=== PATIENT | female | born 1995 | race Caucasian/White ===

== ENCOUNTER 2016-08-06 16:59 | Emergency (ER) | payer OTHER ==
[2016-08-06] MEDS ORDERED: NS 0.9% 1000 ML* 2,000 ML IV ONE (20:34)
[2016-08-06] MEDS ORDERED: Acetaminophen TAB* 325 MG PO ONE (20:52)
[2016-08-06] MEDS ORDERED: Ondansetron INJ* 2 MG/ML VIAL IV ONE (20:52)
[2016-08-06 21:18] LABS: Hematocrit 41 % (35-47); Hemoglobin 13.4 g/dl (12.0-16.0); Mean Corpuscular HGB Conc 33 g/dl (31-36); Mean Corpuscular Hemoglobin 29 pg (27-31); Mean Corpuscular Volume 89 fL (80-97); Mean Platelet Volume 8 um3 (7.4-10.4); Red Blood Count 4.57 10^6/ul (4.0-5.4); Red Cell Distribution Width 13 % (10.5-15); White Blood Count 10.4 10^3/ul (3.5-10.8)
[2016-08-06 21:32] LABS: ALT 14 U/L (7-52); AST 22 U/L (13-39); Albumin 4.2 g/dL (3.2-5.2); Alkaline Phosphatase 70 U/L (34-104); Anion Gap 7 mmol/L (2-11); BUN/Creatinine Ratio 8.9 (8-20); Blood Urea Nitrogen 9 mg/dL (6-24); C Reactive Protein 60.21 mg/L (< 5.00); CO2 Carbon Dioxide 26 mmol/L (22-32); Calcium 9.6 mg/dL (8.6-10.3); Chloride 103 mmol/L (101-111); EGFR Non-African American 69.2 (>60); Globulin 3.3 g/dL (2-4); Glucose 88 mg/dL (70-100); Lipase 12 U/L (11.0-82.0); Potassium 3.7 mmol/L (3.5-5.0); Sodium 136 mmol/L (133-145); Total Protein 7.5 g/dL (6.4-8.9)
--- NOTE | 2016-08-06 23:02 | ED ---
Oscar Moore Adam, scribed for Cristopher Robertson MD on 08/06/16 at 2048 . Abdominal Pain/Female - HPI Summary HPI Summary: Pt is a 21 year old female presenting with abdominal pain. The pain is localized around her umbilicus and it has been constant for the past 24 hours but fluctuates in severity. It is aggravated by movement including ambulation and hitting bumps in the car. Eating food also aggravates the pain. She has not eaten since noon today because of the pain. It is between a 5 and 7 out of 10 in severity. It does not radiate anywhere. She has not taken anything for the pain. Pt states that she has also had a fever that set on 2 nights ago (Tmax 101 F). She also c/o nausea and lightheadedness/dizziness. She denies dysuria, URI sx, and pain/swelling in the legs. She doesn't know anyone who is sick right now. She is midway through her menstrual cycle. No Hx of hernias. - History of Current Complaint Chief Complaint: EDAbdPain Stated Complaint: ABD PAIN,NAUSEA,FEVER Time Seen by Provider: 08/06/16 20:38 Hx Obtained From: Patient Onset/Duration: Gradual Onset, Lasting Hours, Still Present Timing: Constant Severity Initially: Moderate Severity Currently: Moderate Pain Intensity: 5 Pain Scale Used: 0-10 Numeric Location: Umbilical Radiates: No Aggravating Factor(s): Movement Alleviating Factor(s): Nothing Associated Signs and Symptoms: Positive: Fever, Nausea Allergies/Adverse Reactions: Allergies Allergy/AdvReac Type Severity Reaction Status Date / Time Amoxicillin Allergy Hives Verified 04/03/14 09:28 Penicillins [PCN] Allergy Hives Verified 04/03/14 09:28 Sulfa Antibiotics Allergy Hives Verified 04/03/14 09:28 PMH/Surg Hx/FS Hx/Imm Hx Sensory History: Reports: Hx Contacts or Glasses Opthamlomology History: Reports: Hx Contacts or Glasses Psychiatric History: Reports: Hx Anxiety, Hx Depression, Hx Community Mental Health Tx Denies: Hx Eating Disorder, Hx of Violent Episodes Against Others Infectious Disease History: No Infectious Disease History: Denies: Traveled Outside the [place] in Last 30 Days - Family History Known Family History: Positive: Other - Anxiety (mother), depression (mother) - Social History Occupation: Student Lives: Alone Alcohol Use: Occasionally Alcohol Amount: 2x/month, 4 drinks at a time. Hx Substance Use: No Substance Use Type: Reports: None Hx Tobacco Use: No Smoking Status (MU): Never Smoked Tobacco Review of Systems Positive: Fever Positive: Abdominal Pain, Nausea Genitourinary: Negative Negative: dysuria Negative: Myalgia, Edema Neurological: Other - Dizziness/lightheadedness All Other Systems Reviewed And Are Negative: Yes Physical Exam - Summary Physical Exam Summary: The patient is well-nourished in no acute distress and in no acute pain. The skin is warm and dry and skin color reflects adequate perfusion. HEENT: The head is normocephalic and atraumatic. The pupils are equal and reactive. The conjunctivae are clear and without drainage. Nares are patent and without drainage. Mouth reveals moist mucous membranes and the throat is without erythema and exudate. The external ears are intact. Neck is supple with full range of motion and non-tender. There are no carotid bruits. There is no neck vein distension. Respiratory: Lungs are clear but there is pain with inspiration. Cardiovascular: Heart is regular rate and rhythm. There is no murmur or rub auscultated. There is no peripheral edema and pulses are symmetrical and equal. Abdomen: Good bowel sounds. No percussion tenderness. Tenderness to palpation over McBurney's point. No pain with percussion of legs or heels. No CVA tenderness. Musculoskeletal: There is no back pain noted. Extremities are non-tender with full range of motion. There is good capillary refill. There is no peripheral edema or calf tenderness elicited. Neurological: Patient is alert and oriented to person, place and time. The patient has symmetrical motor strength in all four extremities. Cranial nerves are grossly intact. Deep tendon reflexes are symmetrical and equal in all four extremities. Psychiatric: The patient has an appropriate affect and does not exhibit any anxiety or depression. Triage Information Reviewed: Yes Vital Signs On Initial Exam: Initial Vitals Temp Pulse Resp BP Pulse Ox 97.6 F 69 20 113/69 100 08/06/16 17:15 08/06/16 17:15 08/06/16 17:15 08/06/16 17:15 08/06/16 17:15 Vital Signs Reviewed: Yes Diagnostics - Vital Signs Vital Signs Temp Pulse Resp BP Pulse Ox 08/06/16 20:13 98.2 F 138 20 106/73 100 08/06/16 19:05 98 F 65 16 127/62 100 08/06/16 18:03 98.2 F 61 20 99/57 100 08/06/16 17:15 97.6 F 69 20 113/69 100 - Laboratory Lab Results: Lab Results 08/06/16 08/06/16 08/06/16 Range/Units 21:00 21:00 21:00 WBC 10.4 (3.5-10.8) 10^3/ul RBC 4.57 (4.0-5.4) 10^6/ul Hgb 13.4 (12.0-16.0) g/dl Hct 41 (35-47) % MCV 89 (80-97) fL MCH 29 (27-31) pg MCHC 33 (31-36) g/dl RDW 13 (10.5-15) % Plt Count 255 (150-450) 10^3/ul MPV 8 (7.4-10.4) um3 Neut % (Auto) 77.0 (38-83) % Lymph % (Auto) 15.2 L (25-47) % [place] % (Auto) 7.1 (1-9) % Eos % (Auto) 0.2 (0-6) % Baso % (Auto) 0.5 (0-2) % Absolute Neuts (auto) 8.0 H (1.5-7.7) 10^3/ul Absolute Lymphs (auto) 1.6 (1.0-4.8) 10^3/ul Absolute Monos (auto) 0.7 (0-0.8) 10^3/ul Absolute Eos (auto) 0 (0-0.6) 10^3/ul Absolute Basos (auto) 0.1 (0-0.2) 10^3/ul Absolute Nucleated RBC 0 10^3/ul Nucleated RBC % 0 Sodium 136 (133-145) mmol/L Potassium 3.7 (3.5-5.0) mmol/L Chloride 103 (101-111) mmol/L Carbon Dioxide 26 (22-32) mmol/L Anion Gap 7 (2-11) mmol/L BUN 9 (6-24) mg/dL Creatinine 1.01 H (0.51-0.95) mg/dL Est GFR ( Amer) 89.0 (>60) Est GFR (Non-Af Amer) 69.2 (>60) BUN/Creatinine Ratio 8.9 (8-20) Glucose 88 (70-100) mg/dL Lactic Acid 0.9 (0.5-2.0) mmol/L Calcium 9.6 (8.6-10.3) mg/dL Total Bilirubin 0.30 (0.2-1.0) mg/dL AST 22 (13-39) U/L ALT 14 (7-52) U/L Alkaline Phosphatase 70 (34-104) U/L C-Reactive Protein 60.21 H (< 5.00) mg/L Total Protein 7.5 (6.4-8.9) g/dL Albumin 4.2 (3.2-5.2) g/dL Globulin 3.3 (2-4) g/dL Albumin/Globulin Ratio 1.3 (1-3) Lipase 12 (11.0-82.0) U/L Beta HCG, Quant < 0.60 mIU/mL Result Diagrams: 08/06/16 21:00 08/06/16 21:00 Lab Statement: Any lab studies that have been ordered have been reviewed, and results considered in the medical decision making process. Abdominal Pain Fem Course/Dx - Diagnoses Differential Diagnosis: Positive: Appendicitis, Ovarian Cyst, , Renal Colic Provider Diagnoses: Abdominal pain Discharge - Discharge Plan Condition: Stable Disposition: OTHER Discharge Disposition Comment: Signout, pending CT results. Referrals: [facility] AMIRAH Roberts [Primary Care Provider] - The documentation as recorded by the Oscar isaacs Adam accurately reflects the service I personally performed and the decisions made by , Cristopher Robertson MD.
[2016-08-06] MEDS ORDERED: Iohexol 300* (CONTRAST) 10 ML SDV IV ONE (23:24)
[2016-08-07 02:05] LABS: Urine Bacteria Absent (Absent); Urine Bilirubin Negative (Negative); Urine Glucose Negative (Negative); Urine Nitrite Negative (Negative)
[2016-08-07 03:11] VITALS: BP 102/54
--- NOTE | 2016-08-07 07:48 | RAD ---
INDICATION: RIGHT lower quadrant pain, anorexia, nausea, fever. Question appendicitis. COMPARISON: None. TECHNIQUE: Multidetector CT images were obtained from the lung bases to the ischial tuberosities with 69 mL Omnipaque 300 IV and oral contrast. Multiplanar reformation. REPORT: Unremarkable visualized inferior thorax. Upper normal size liver is remarkable for mild periportal edema likely secondary to hyaline volume state given full physiologic distention of the IVC. Minimal typical location fatty infiltration noted at the LEFT medial hepatic segment . No suspicious focal hepatic lesions or biliary dilatation. Trace pericholecystic fluid at the gallbladder without additional CT abnormality of the gallbladder. Unremarkable pancreas. Mildly enlarged 16 cm cephalocaudal by 7.3 cm AP by 3.7 cm transverse spleen. Negative for CT abnormality of the upper GI. There is approximate 7.5 cm length moderately severe circumferential mural thickening of the terminal ileum extending to the ileocecal valve. No additional areas of small bowel wall thickening evident. No resulting bowel obstruction. Enteric contrast passes to the descending colon sigmoid junction. Normal appendix with partial contrast opacification visualized along the RIGHT pelvic sidewall. Small volume of free pelvic fluid. Negative for free air or hernias. Normal adrenal glands. Unremarkable kidneys with symmetric nephrograms and pyelograms. No focal renal lesions or hydronephrosis. Unremarkable ureters and moderately distended urinary bladder as well as the uterus and adnexal regions. Negative for lymphadenopathy. Unremarkable abdominal aorta and iliac arteries. Physiologic distention of the IVC. Minimal incomplete fusion of the T12 and L1 spinal lamina noted. No suspicious focal osseous lesions. IMPRESSION: 1. Moderately severe mural thickening of the terminal ileum concerning for infectious etiology or potentially inflammatory bowel disease. No resulting bowel obstruction. Negative for perienteric abscess. 2. Normal appendix documented. 3. Mild splenomegaly. 4. Periportal edema at the liver likely secondary to high volume state.
== END 2016-08-07 03:10 | disposition home or self-care (01) ==
LOC: ED 16:59
DX: R10.9 Unspecified abdominal pain (principal); R50.9 Fever, unspecified; R11.0 Nausea
CPT/HCPCS: 36415; 74177; 80053; 81003; 81015; 83605; 83690; 84702; 85025; 86140; 87086; 96374; 99283; A9270-GY; J2405; Q9967

== ENCOUNTER 2019-05-17 09:09 | Emergency (ER) | payer OTHER ==
[2019-05-17 09:44] LABS: ABS Eosinophils 0.1 10^3/ul (0-0.6); ABS Lymphocytes 1.3 10^3/ul (1.0-4.8); ABS Monocytes 0.4 10^3/ul (0-0.8); ABS Neutrophils 3.8 10^3/ul (1.5-7.7); Eosinophil % 0.9 %; Hematocrit 37 % (35-47); Hemoglobin 12.6 g/dL (12.0-16.0); Lymphocyte % 23.8 %; Mean Corpuscular HGB Conc 34 g/dL (31-36); Mean Corpuscular Hemoglobin 30 pg (27-31); Mean Corpuscular Volume 88 fL (80-97); Mean Platelet Volume 7.3 fL (7.4-10.4); Nucleated Red Blood Cells % 0.1; Platelet Count 272 10^3/uL (150-450); Red Blood Count 4.22 10^6 /uL (3.70-4.87); Red Cell Distribution Width 12 % (10-15); White Blood Count 5.6 10^3/uL (3.5-10.8)
--- NOTE | 2019-05-17 09:50 | ED ---
Syncope/Near Syncope - HPI Summary HPI Summary: Patient is a 24 y/o F w/ Hx of multiple syncopal episodes who presents to [facility] with complaints of a syncopal episode today, 05/17/19. Patient was working at [employer] [employer] [facility] when she experienced sudden onset of light-headedness and visual changes, describing her vision as "spotty" and "black". Patient had leaned against a wall to catch herself, no injuries reported. Patient claims multiple previous episodes of "fainting spells" but notes that today's episode had occurred more suddenly at work. She is unsure of last syncopal episode, noting that it has "been a while". In triage. patient's face got pale and her head went down and and would not answer for about 15 seconds. In the room, patient reports that she still feels somewhat light-headed but improved. She notes that she had an echocardiogram years ago. Patient reports that she was told that she has slightly decreased ventricular output and possibly a thin right ventricle. PMHx of depression for which the patient is on medication. FMHx of cardiac disease is noted. PSHx of tonsillectomy is noted. Home medications and allergies are reviewed. - History Of Current Complaint Chief Complaint: EDSyncope Time Seen by Provider: 05/17/19 09:25 Hx Obtained From: Patient Onset/Duration: Sudden Onset, Still Present - light-headed Timing: Intermittent Episode Lasting Activity At Onset: Other - at work Associated Head Trauma: No Associated Signs And Symptoms: Dizzy - light-headed, Other - black and spotty vision - Allergies/Home Medications Allergies/Adverse Reactions: Allergies Allergy/AdvReac Type Severity Reaction Status Date / Time amoxicillin Allergy Unknown Verified 05/17/19 09:14 Reaction Details ciprofloxacin [From Cipro] Allergy Unknown Verified 05/17/19 09:14 Reaction Details Penicillins Allergy Hives Verified 05/17/19 09:14 Sulfa (Sulfonamide Allergy Hives Verified 05/17/19 09:14 Antibiotics) Home Medications: Home Medications Ethinyl Estradiol/Drospirenone [Di 28 Tablet] 1 each PO DAILY 05/17/19 [ History Confirmed 05/17/19] Fluconazole 150 MG TAB* [Diflucan 150 MG TAB*] 150 mg PO DAILY 05/17/19 [ History Confirmed 05/17/19] Sertraline* [Zoloft*] 25 mg PO DAILY 05/17/19 [History Confirmed 05/17/19] PMH/Surg Hx/FS Hx/Imm Hx Endocrine/Hematology History: Denies: Hx Diabetes Cardiovascular History: Denies: Hx Hypertension History: Denies: Hx Dialysis, Hx Renal Disease Sensory History: Reports: Hx Contacts or Glasses Denies: Hx Deafness Opthamlomology History: Reports: Hx Contacts or Glasses Neurological History: Denies: Hx CVA Psychiatric History: Reports: Hx Anxiety, Hx Depression, Hx Community Mental Health Tx Denies: Hx Eating Disorder, Hx of Violent Episodes Against Others - Surgical History Surgery Procedure, Year, and Place: tonsillectomy Infectious Disease History: No Infectious Disease History: Denies: Traveled Outside the [place] in Last 30 Days - Family History Known Family History: Positive: Cardiac Disease, Other - Anxiety (mother), depression (mother) - Social History Alcohol Use: Occasionally Alcohol Amount: 2x/month, 4 drinks at a time. Hx Substance Use: No Substance Use Type: Reports: None Hx Tobacco Use: No Smoking Status (MU): Never Smoked Tobacco Review of Systems Positive: Blurred Vision - black and spotty vision Neurological: Other - positive - light-headedness Positive: Syncope All Other Systems Reviewed And Are Negative: Yes Physical Exam - Summary Physical Exam Summary: Constitutional: Well-developed, Well-nourished, Alert. (-) Distressed Skin: Warm, Dry HENT: Normocephalic; Atraumatic Eyes: Conjunctiva normal Neck: Musculoskeletal ROM normal neck. (-) JVD, (-) Stridor, (-) Nuchal rigidity Cardio: Rhythm regular, rate normal, Heart sounds normal; Intact distal pulses; Radial pulses are 2+ and symmetric. (-) Murmur Pulmonary/Chest wall: Effort normal. (-) Respiratory distress, (-) Wheezes, (-) Rales Abd: Soft, (-) tenderness, (-) Distension, (-) Guarding, (-) Rebound Musculoskeletal: (-) Edema Lymph: (-) Cervical adenopathy Neuro: Alert, Oriented x3 Psych: Mood and affect Normal Triage Information Reviewed: Yes Vital Signs On Initial Exam: Initial Vitals Temp Pulse Resp BP Pulse Ox 97.9 F 67 16 121/79 99 05/17/19 09:10 05/17/19 09:10 05/17/19 09:10 05/17/19 09:10 05/17/19 09:10 Vital Signs Reviewed: Yes Procedures - Sedation Patient Received Moderate/Deep Sedation with Procedure: No Diagnostics - Vital Signs Vital Signs Temp Pulse Resp BP Pulse Ox 05/17/19 09:10 97.9 F 67 16 121/79 99 - Laboratory Result Diagrams: 05/17/19 09:30 05/17/19 09:30 Lab Statement: Any lab studies that have been ordered have been reviewed, and results considered in the medical decision making process. - Radiology CXR Radiology Interpretation Completed By: Radiologist Summary of Radiographic Findings: IMPRESSION: HYPERINFLATION WHICH CAN BE SEEN WITH REACTIVE AIRWAY DISEASE OR COPD. NO ACTIVE. CARDIOPULMONARY DISEASE. THIS REPORT WAS REVIEWED BY DR. POWELL. - EKG 0938 Cardiac Rate: NL - rate of 63 BPM EKG Rhythm: Sinus Rhythm Summary of EKG Findings: EKG showed NSR with rate of 63 BPM, LAFB, left axis deviation. No prior EKG to compare with. This EKG was reviewed and interpreted by ED physician. Re-Evaluation - Re-Evaluation First Eval Re-Evaluation Time: 10:40 Change: Improved Comment: Labs unremarkable, EKG w LAFB, no prior. 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 Orthostatics neg, ambulated w/o lightheadedness. Advised to follow up w cardiology here. Course/Dx Course Of Treatment: 24 y/o F p/w syncopal episode (one at work, one in ED). - hx similar in past, negative workup. Did have echo years ago w possible ?thin RV but cleared by cardiology. Reports hx multiple syncopal events. No CP. EKG here w LAFB no prior. CXR neg. Orthostatics w lightheadedness while standing but otherwise OK. Ambulated here in ED. plan for outpatient cardiac w/u, patient in agreement. Syncope. DDx: most likely vasovagal. also consider: Cardiac issue: electrical (dysarrhythmias, brugada, WPW, long QT). Normal qTC here, EKG w LAFB, no prior. Had normal echo aside from thin RV in past. Seizure: no witnessed seizure activity, incontinence or h/o seizures to suggest seizure today. Hypoxia and hypoglycemia less likely in this patient with normal sats and BG. Mechanical: outflow obstruction like HOCM or aortic stenosis, tamponade-less likely as no murmur, non-exertional, no hypertrophy on EKG. Vessels: PE, dissection, AAA. Clinical picture inconsistent, no abd pain, no pulsatile mass, symmetric pulses, no risk factors of PE. Volume issue: dehydration from vomiting/diarrhea/decreased PO, sepsis, GI bleed, ruptured ectopic or bleeding AAA. No signs of recent illness to suggest infection, no e/ o anemia by history or PE, neg preg. Neuro: No GORDON, no personal or family h/o cerebral aneurysm, nml neuro exam, so this is unlikely ICH or sentinel bleed - Diagnoses Provider Diagnoses: Syncope Discharge ED - Sign-Out/Discharge Documenting (check all that apply): Patient Departure - discharge - Discharge Plan Condition: Stable Disposition: HOME Patient Education Materials: Syncope (ED) Referrals: Michael Astorga MD [Medical Doctor] - Annie Hastings MD [Primary Care Provider] - Additional Instructions: You were seen in the emergency department for syncope. Please follow up with a aircraft servicer. Please do not do any strenuous activity and to you're cleared by her doctor. If any studies were not completed at the time of discharge you will be called with the relevant results. Please follow up with your primary care doctor in next 2-3 days and return to emergency department for continued passing out, chest pain, trouble breathing or concerning symptoms. It was a pleasure taking care of you today. - Billing Disposition and Condition Condition: STABLE Disposition: Home - Attestation Statements Document Initiated by Amauri: Yes Documenting Tamaraibe: CARLOS KENDALL Provider For Whom Amauri is Documenting (Include Credential): KENDRA POWELL MD Scribe Attestation: ICARLOS, scribed for KENDRA POWELL MD on 05/17/19 at 1245. Scribe Documentation Reviewed: Yes Provider Attestation: The documentation as recorded by the CARLOS isaacs accurately reflects the service I personally performed and the decisions made by me, KENDRA POWELL MD Status of Scribe Document: Viewed
[2019-05-17 10:01] LABS: ALT 8 U/L (7-52); AST 13 U/L (13-39); Albumin/Globulin Ratio 1.3 (1-3); Alkaline Phosphatase 53 U/L (34-104); Anion Gap 6 mmol/L (2-11); BUN/Creatinine Ratio 10.9 (8-20); Blood Urea Nitrogen 11 mg/dL (6-24); CO2 Carbon Dioxide 26 mmol/L (22-32); Calcium 9.5 mg/dL (8.6-10.3); Chloride 105 mmol/L (101-111); EGFR African American 81.5 (>60); EGFR Non-African American 67.3 (>60); Glucose 57 mg/dL (70-100); Potassium 4.3 mmol/L (3.5-5.0); Sodium 137 mmol/L (135-145)
[2019-05-17 10:07] LABS: HCG Pregnancy < 0.60 mIU/mL
[2019-05-17 11:08] VITALS: BP 00/0
== END 2019-05-17 11:05 | disposition home or self-care (01) ==
LOC: ED 09:09
DX: R55 Syncope and collapse (principal); F41.9 Anxiety disorder, unspecified; F32.9 Major depressive disorder, single episode, unspecified; Z79.899 Other long term (current) drug therapy; Z90.89 Acquired absence of other organs; Z88.1 Allergy status to other antibiotic agents; Z88.0 Allergy status to penicillin; Z88.2 Allergy status to sulfonamides
CPT/HCPCS: 36415; 71046; 80053; 84702; 85025; 93005; 99282

== ENCOUNTER 2019-07-06 11:56 | Emergency (ER) | payer OTHER ==
--- NOTE | 2019-07-06 12:12 | ED ---
Complex/Multi-Sys Presentation - HPI Summary HPI Summary: 24-year-old female who is a employee of the [employer] presents to the emergency Department today status post needle stick exposure while at work. 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 Needle was 21-gauge hollow bore and the patient was wearing gloves. Patient states she "squeezed the blood out and washed my finger" prior to arrival. Patient feels while otherwise denies fever, chest pain, abdominal pain, urination, lightheadedness, rash. Family history and surgical history noncontributory. - History Of Current Complaint Chief Complaint: EDGeneral Time Seen by Provider: 07/06/19 12:11 Hx Obtained From: Patient Onset/Duration: Sudden Onset Timing: Seconds Associated Signs And Symptoms: Negative: Confusion, Syncope, Headache, SOB, Cough, Wheezing, Hemoptysis, Chest Pain, Palpitations, Edema, Nausea, Vomiting, Diarrhea, Abdominal Pain, Melena, Decreased Oral Intake, Immunocompromised, Recent Medication Changes, Indwelling Extrusion Machine Operator - Allergies/Home Medications Allergies/Adverse Reactions: Allergies Allergy/AdvReac Type Severity Reaction Status Date / Time amoxicillin Allergy Unknown Verified 07/06/19 12:08 Reaction Details ciprofloxacin [From Cipro] Allergy Unknown Verified 07/06/19 12:08 Reaction Details Penicillins Allergy Hives Verified 07/06/19 12:08 Sulfa (Sulfonamide Allergy Hives Verified 07/06/19 12:08 Antibiotics) PMH/Surg Hx/FS Hx/Imm Hx Endocrine/Hematology History: Denies: Hx Diabetes Cardiovascular History: Reports: Other Cardiovascular Problems/Disorders - SYNCOPE. Denies: Hx Hypertension History: Denies: Hx Dialysis, Hx Renal Disease Sensory History: Reports: Hx Contacts or Glasses Denies: Hx Deafness Opthamlomology History: Reports: Hx Contacts or Glasses Neurological History: Denies: Hx CVA Psychiatric History: Reports: Hx Anxiety, Hx Depression, Hx Community Mental Health Tx Denies: Hx Eating Disorder, Hx of Violent Episodes Against Others - Surgical History Surgery Procedure, Year, and Place: tonsillectomy Infectious Disease History: Unable to Obtain/Confirm Infectious Disease History: Denies: Traveled Outside the [place] in Last 30 Days - Family History Known Family History: Positive: Cardiac Disease, Other - Anxiety (mother), depression (mother) - Social History Alcohol Use: Occasionally Alcohol Amount: 2x/month, 4 drinks at a time. Hx Substance Use: No Substance Use Type: Reports: None Hx Tobacco Use: No Smoking Status (MU): Never Smoked Tobacco Review of Systems Constitutional: Negative Eyes: Negative ENT: Negative Cardiovascular: Negative Respiratory: Negative Gastrointestinal: Negative Genitourinary: Negative Musculoskeletal: Negative Skin: Negative Neurological: Negative Psychological: Normal All Other Systems Reviewed And Are Negative: Yes Physical Exam Triage Information Reviewed: Yes Vital Signs On Initial Exam: Initial Vitals Temp Pulse Resp BP Pulse Ox 98.0 F 62 16 111/71 100 07/06/19 12:05 07/06/19 12:05 07/06/19 12:05 07/06/19 12:05 07/06/19 12:05 Vital Signs Reviewed: Yes Appearance: Positive: Well-Appearing, No Pain Distress, Well-Nourished Skin: Positive: Warm, Skin Color Reflects Adequate Perfusion Eyes: Positive: EOMI, JEFFERY ENT: Positive: Hearing grossly normal Respiratory/Lung Sounds: Positive: Clear to Auscultation, Breath Sounds Present Cardiovascular: Positive: RRR, S1, S2 Musculoskeletal: Positive: Strength/ROM Intact Neurological: Positive: Sensory/Motor Intact, Alert, Oriented to Person Place, Time, Normal Gait, Facial Symmetry, Speech Normal Psychiatric: Positive: Normal, Affect/Mood Appropriate AVPU Assessment: Alert Procedures - Sedation Patient Received Moderate/Deep Sedation with Procedure: No Diagnostics - Vital Signs Vital Signs Temp Pulse Resp BP Pulse Ox 07/06/19 12:05 98.0 F 62 16 111/71 100 - Laboratory Result Diagrams: 07/06/19 12:25 07/06/19 12:25 Lab Statement: Any lab studies that have been ordered have been reviewed, and results considered in the medical decision making process. Complex Multi-Symp Course/Dx Course Of Treatment: Patient was evaluated in the emergency department status post needlestick through occupational exposure. Vital signs noted. Source patient blood was available for hepatitis C and hepatitis B testing however patient refused consent for HIV testing. Patient was informed and was not interested in post exposure prophylaxis at this time and shows 2 have HIV testing done in 2 weeks. Patient's blood was drawn for hepatitis B and C screening. CBC and CMP were done and returned within normal limits. Patient is discharged with outpatient follow-up. Pt will be notified with positive results. - Diagnoses Differential Diagnoses/HQI/PQRI: Other - body fluid exposure, needle stick Provider Diagnoses: Needle stick injury, Exposure to body fluid due to accidental needlestick injury Discharge ED - Sign-Out/Discharge Documenting (check all that apply): Patient Departure - Discharge Plan Condition: Stable Disposition: HOME Patient Education Materials: Postexposure Prophylaxis (ED), Body Substance Exposure (ED) Referrals: Karolyn QUIÑONEZ,Elie Morales [Medical Doctor] - 2 Weeks Annie Hastings MD [Primary Care Provider] - Additional Instructions: You were seen in the emergency department today due to occupational exposure. Today you declined post exposure prophylaxis however you may call any time to have this ordered. Please follow up with Elie Parr in 2 weeks for HIV testing. Please return to the emergency department immediately if you develop any new or worsening symptoms. - Billing Disposition and Condition Condition: STABLE Disposition: Home - Attestation Statements Provider Attestation: I was available for consultation for this patient. I did not evaluate the patient or participate in any medical decision making or disposition decisions unless I am specifically named in the chart as having consulted on the patient. If I have consulted on the patient, please see my own ED note on the patient encounter. Becca Montalvo MD
--- OUTSIDE RECORDS SUMMARY | 2019-07-06 12:32 | XMS REPORT | Continuity of Care Document ---
:1995 External Reference #:[id number] Author Name RACHEL Vines (transmitted by agent of provider Lesa Moreno) Address [address] [place] [address] Care Team Providers Name Role Phone Annie Hastings MD - Student in an Care Team Information Computing Consultant [phone] Organized Health Care Education/Training Program Problems Description No Information Available Social History Type Date Description Comments Sex Unknown Tobacco Use Start: Unknown Never Smoked Cigarettes ETOH Use Occasionally consumes alcohol Tobacco Use Start: Unknown Patient has never smoked Recreational Drug Use Denies Drug Use Smoking Status Reviewed: 05/17/19 Patient has never smoked Exercise Type/Frequency Does not exercise Allergies, Adverse Reactions, Alerts Active Allergies Reaction Severity Comments Date Amoxicillin 04/23/2014 Penicillin 04/23/2014 Sulfa Antibiotics 04/23/2014 Cipro 07/29/2018 Medications Active Medications SIG Qnty Indications Ordering Provider Date Diflucan take one tab by 3tabs Shanelle Loera, N.P. 05/16/2019 150mg Tablets mouth every 72 hours x 3 Zoloft 1 tablet daily 90tabs Unknown 25mg Tablets Multivitamin Adult 1 by mouth every Unknown day Tablets Di 1 by mouth every 28tabs Shanelle Loera, N.P. 3-0.02mg Tablets day Medications Administered in Office Medication SIG Qnty Indications Ordering Provider Date PPD Injection Geraldo Haynes MD 09/06/2018 Immunizations Description No Information Available Vital Signs Date Vital Result Comment 05/17/2019 2:13pm Height 68 inches 5'8" Weight 117.50 lb Heart Rate 65 /min BP Systolic 99 mmHg BP Diastolic 49 mmHg Body Temperature 97.8 F O2 % BldC Oximetry 99 % BMI (Body Mass Index) 17.9 kg/m2 05/16/2019 1:55pm Height 68 inches 5'8" Weight 118.00 lb Heart Rate 62 /min BP Systolic 100 mmHg BP Diastolic 67 mmHg Body Temperature 97.8 F Pain Level 2 Vaginal area BMI (Body Mass Index) 17.9 kg/m2 Last Menstrual Period [id number] Results Test Acquired Date Facility Test Result H/L Range Note Laboratory test 05/17/2019 [facility] Hemoglobin A1c 5.0 5-7 finding Laboratory test 05/17/2019 [facility] Glucose Serum 91 finding CBC Auto Diff 05/17/2019 [facility] White Blood 5.6 Normal 3.5 -10.[address] Count 10^3/[place] [address] [phone] Red Blood Count 4.22 10^6/uL Normal 3.70-4.87 Hemoglobin 12.6 g/dL Normal 12.0-16.0 Hematocrit 37 % Normal 35-47 Mean Corpuscular Volume 88 fL Normal 80-97 Mean Corpuscular Hemoglobin 30 pg Normal 27-31 Mean Corpuscular HGB Conc 34 g/dL Normal 31-36 Red Cell Distribution Width 12 % Normal 10-15 Platelet Count 272 10^3/uL Normal 150-450 Mean Platelet Volume 7.3 fL Low 7.4-10.4 Abs Neutrophils 3.8 10^3/uL Normal 1.5-7.7 Abs Lymphocytes 1.3 10^3/uL Normal 1.0-4.8 Abs Monocytes 0.4 10^3/uL Normal 0-0.8 Abs Eosinophils 0.1 10^3/uL Normal 0-0.6 Abs Basophils 0.0 10^3/uL Normal 0-0.2 Abs Nucleated RBC 0.0 10^3/uL Granulocyte % 67.7 % Lymphocyte % 23.8 % Monocyte % 6.7 % Eosinophil % 0.9 % Basophil % 0.9 % Nucleated Red Blood Cells % 0.1 Comp Metabolic 05/17/2019 [facility] Sodium 137 mmol/L Normal 135-[address] [place] [address] [phone] Potassium 4.3 mmol/L Normal 3.5-5.0 Chloride 105 mmol/L Normal 101-111 Co2 Carbon Dioxide 26 mmol/L Normal 22-32 Anion Gap 6 mmol/L Normal 2-11 Glucose 57 mg/dL Low 70-100 Blood Urea Nitrogen 11 mg/dL Normal 6-24 Creatinine 1.01 mg/dL High 0.51-0.95 BUN/Creatinine Ratio 10.9 Normal 8-20 Calcium 9.5 mg/dL Normal 8.6-10.3 Total Protein 7.0 g/dL Normal 6.4-8.9 Albumin 4.0 g/dL Normal 3.2-5.2 Globulin 3.0 g/dL Normal 2-4 Albumin/Globulin Ratio 1.3 Normal 1-3 Total Bilirubin 0.40 mg/dL Normal 0.2-1.0 Alkaline Phosphatase 53 U/L Normal 34-104 Alt 8 U/L Normal 7-52 Ast 13 U/L Normal 13-39 Egfr Non- 67.3 >60 Egfr 81.5 >60 1 Laboratory test 05/17/2019 [facility] HCG < 0.60 [address] mIU/[place] [address] [phone] Laboratory test 05/16/2019 [facility] Gardnerella/Ye SEE RESULT 3, [address] ast: [place] [address] Dna [phone] Laboratory test 05/12/2019 [facility] TSH (Thyroid 1.44 Normal 0.[address] Stim Horm) mcIU/mL -5.6 [place] [address] [phone] CBC Auto Diff 05/12/2019 [facility] White Blood 7.0 Normal 3.5 - [address] Count 10^3/uL 10.8 [place] [address] [phone] Red Blood Count 4.23 10^6/uL Normal 3.70-4.87 Hemoglobin 12.6 g/dL Normal 12.0-16.0 Hematocrit 37 % Normal 35-47 Mean Corpuscular Volume 88 fL Normal 80-97 Mean Corpuscular Hemoglobin 30 pg Normal 27-31 Mean Corpuscular HGB Conc 34 g/dL Normal 31-36 Red Cell Distribution Width 12 % Normal 10-15 Platelet Count 300 10^3/uL Normal 150-450 Mean Platelet Volume 7.7 fL Normal 7.4-10.4 Abs Neutrophils 4.6 10^3/uL Normal 1.5-7.7 Abs Lymphocytes 1.8 10^3/uL Normal 1.0-4.8 Abs Monocytes 0.4 10^3/uL Normal 0-0.8 Abs Eosinophils 0.0 10^3/uL Normal 0-0.6 Abs Basophils 0.0 10^3/uL Normal 0-0.2 Abs Nucleated RBC 0.0 10^3/uL Granulocyte % 66.3 % Lymphocyte % 26.2 % Monocyte % 6.2 % Eosinophil % 0.7 % Basophil % 0.6 % Nucleated Red Blood Cells % 0.1 Lipid Profile 05/12/2019 [facility] Triglycerides 122 mg/dL 5 (Trig/Chol/HDL) [address] [place] [address] [phone] Cholesterol 229 mg/dL 6 HDL Cholesterol 71.2 mg/dL 7 LDL Cholesterol 133 mg/dL 8 Laboratory test 05/12/2019 [facility] Erythrocyte Sed 10 mm/Hr Normal 0-[address] [place] [address] [phone] Vitamin B12 178 pg/mL Low 180-914 9 Vitamin D Total 25(Oh) 34.3 ng/mL Normal 20-50 10 1 Because ethnic data is not always readily available, this report includes an eGFR for both -Americans and non- Americans. The National Kidney Disease Education Program (NKDEP) does not endorse the use of the MDRD equation for patients that are not between the ages of 18 and 70, are , have extremes of body size, muscle mass, or nutritional status, or are non- or non-. According to the National Kidney Foundation, irrespective of diagnosis, the stage of the disease is based on the level of kidney function: Stage Description GFR(mL/min/1.73 m(2)) 1 Kidney damage with normal or decreased GFR 90 2 Kidney damage with mild decrease in GFR 60-89 3 Moderate decrease in GFR 30-59 4 Severe decrease in GFR 15-29 5 Kidney failure <15 (or dialysis) 2 <5.0 Negative 5.0 - 25.0 Indeterminate (Repeat testing recommended after 72 hours) >25.0 Positive Perimenopausal women can display HCG levels of up to 20 mIU/mL 3 [id number] SEE RESULT BELOW Name: JANIS MCHUGH : [address]: Shanelle Loera FNPS Acct: [id number] Unit: [id number] AGE: 24 Location: [facility] Re05/16/19 SEX: F Status: REG REF SPEC: [id number] EBONIE: 05/16/[address]: Shanelle Loera FNPS REQ: [id number] RECD: 05/16/19 STATUS: COMP _ SOURCE: VAGINAL SPDESC: ORDERED: Marlo,Yeast DNA, Trich DNA COMMENTS: [id number] Would you like to order Trichomonas Vaginalis testing? Yes Procedure Result Reported Site Gardnerella/Yeast: Vaginal DNA Final 05/17/19- 1432 ML Organism 1 Negative Gardnerella Organism 2 POSITIVE LORI The presence of G. vaginalis, although suggestive, is not diagnostic for bacterial vaginosis. Results should be interpreted in conjuction with other clinical and laboratory data available. Women with vaginal discharge should be evaluated for risk factors of cervicitis and pelvic inflammatory disease, toxic shock syndrome (S.aureus), and if present, evaluated for organisms not included in this assay such as N. gonorrhoeae, C. trachomatis, Mobiluncus, Mycoplasma and/or Prevotella. Mixed infections may occur. The performance of this test on patient specimens collected during or immediately after antimicrobial therapy is unknown. The presence or absence of Lori species, or G. vaginalis cannot be used as a test for therapeutic success or failure. Trichomonas: Vaginal DNA Probe Final 05/17/19- 143 ML Organism 1 Negative Trichomonas CONTINUED ON NEXT PAGE DEPARTMENT OF PATHOLOGY, [address] [place] [address] Jacky Norman M.D. Director [facility] # [id number] Patient: MEREDITHZOHRA POZOHEL [id number] (Continued) Specimen: [id number] Collected: 05/16/19 Received: 05/16/19 (Continued) Procedure Result Reported Site Trichomonas: Vaginal DNA Probe Final (continued) 05/17/19- 1432 The presence or absence of T. vaginalis cannot be used as a test for therapeutic success or failure. * ML - Main Lab . END OF REPORT DEPARTMENT OF PATHOLOGY, [address] [place] [address] Jacky Norman M.D. Director [facility] # [id number] 5 Desirable: <150 Borderline High: 150-199 High: 200-499 Very High: >500 6 Desirable: <200 Borderline High: 200-239 High: >239 7 Low: <40 Desirable: 40-60 High: >60 8 Desirable: <100 Near Optimal: 100-129 Borderline High: 130-159 High: 160-189 Very High: >189 9 Normal Range 180 to 914 Indeterminate Range 145 to 180 Deficient Range <145 10 Total 25-Hydroxyvitamin D2 and D3 (25-OH-VitD) <10 ng/mL (severe deficiency) 10-19 ng/mL (mild to moderate deficiency) 20-50 ng/mL (optimum levels) 51-80 ng/mL (increased risk of hypercalciuria) >80 ng/mL (toxicity possible) Procedures Description No Information Available Medical Devices Description No Information Available Encounters Description No Information Available Assessments Date Code Description Provider 05/17/2019 R55 Syncope and collapse Pradeep MuseMARLENP 05/17/2019 R51 Headache Pradeep Muse, [facility] 05/17/2019 E16.1 Other hypoglycemia Pradeep MuseRACHEL 05/11/2019 Z00.00 Encounter for general adult medical examination Annie Hastings MD without abnormal findings 05/11/2019 R53.82 Chronic fatigue, unspecified Annie Hastings MD 05/11/2019 E78.5 Hyperlipidemia, unspecified Annie Hastings MD 05/11/2019 Z23 Encounter for immunization Annie Hastings MD 05/11/2019 R51 Headache Annie Hastings MD Plan of Treatment 05/17/2019 - Pradeep MuseMARLENPR55 Syncope and collapseNew Orders:Echocardiogram , Ordered: 05/17/19Holter Monitor, Ordered: 05/17/19Comments:Etiology unclear, most likely due to vasovagal reaction.EEG, Holter monitor.Keep well hydrated. Avoid alcohol.Follow up after tests.Referral:[facility],R51 NodmgsfyX31.1 Other hypoglycemiaReferral:Arnold Novoa MD, Endocrinology Functional Status Description No Information Available Mental Status Description No Information Available Referrals Refer to Reason for Referral Status Appt Date Arnold Novoa MD Sent [address] [place] [phone] [facility] Created [address] [place] [address] [phone]
[2019-07-06 12:47] LABS: ABS Lymphocytes 1.7 10^3/ul (1.0-4.8); ABS Monocytes 0.3 10^3/ul (0-0.8); ABS Neutrophils 2.7 10^3/ul (1.5-7.7); Eosinophil % 0.9 %; Hematocrit 36 % (35-47); Hemoglobin 12.5 g/dL (12.0-16.0); Lymphocyte % 35.1 %; Mean Corpuscular HGB Conc 34 g/dL (31-36); Mean Corpuscular Hemoglobin 30 pg (27-31); Mean Corpuscular Volume 88 fL (80-97); Mean Platelet Volume 7.4 fL (7.4-10.4); Nucleated Red Blood Cells % 0.1; Platelet Count 297 10^3/uL (150-450); Red Blood Count 4.15 10^6 /uL (3.70-4.87); Red Cell Distribution Width 13 % (10-15); White Blood Count 4.8 10^3/uL (3.5-10.8)
[2019-07-06 13:03] LABS: Albumin 4.3 g/dL (3.2-5.2); Albumin/Globulin Ratio 1.5 (1-3); BUN/Creatinine Ratio 9.8 (8-20); Calcium 9.6 mg/dL (8.6-10.3); EGFR African American 90.7 (>60); Globulin 2.8 g/dL (2-4); Potassium 4.5 mmol/L (3.5-5.0); Total Bilirubin 0.3 mg/dL (0.2-1.0); Total Protein 7.1 g/dL (6.4-8.9)
[2019-07-06 13:15] VITALS: BP 130/85
[2019-07-06 13:33] LABS: Hepatitis B Surface Antigen Nonreactive (Nonreactive)
[2019-07-06 13:50] LABS: Hepatitis B Surface Ab Not Immune (Immune); Hepatitis C Antibody Negative (Negative)
[2019-07-07 12:26] LABS: HIV 4th Generation Nonreactive (Nonreactive)
== END 2019-07-06 13:13 | disposition home or self-care (01) ==
LOC: ED 11:56
DX: Z77.21 Contact with and (suspected) exposure to potentially hazardous body fluids (principal); S61.239A Puncture wound without foreign body of unspecified finger without damage to nail, initial encounter; W46.0XXA Contact with hypodermic needle, initial encounter; Y92.239 Unspecified place in hospital as the place of occurrence of the external cause; Y99.0 Civilian activity done for income or pay; Z88.0 Allergy status to penicillin; Z88.1 Allergy status to other antibiotic agents; Z88.2 Allergy status to sulfonamides; F41.9 Anxiety disorder, unspecified; F32.9 Major depressive disorder, single episode, unspecified
CPT/HCPCS: 36415; 80053; 85025; 86706; 86803; 87340; 87389; 99282

== ENCOUNTER 2019-09-29 19:22 | Emergency (ER) | payer OTHER ==
--- OUTSIDE RECORDS SUMMARY | 2019-09-29 19:29 | XMS REPORT | Continuity of Care Document ---
:1995 External Reference #:[id number] Author Name Shanelle Loera N.P. (transmitted by agent of provider September) Address [address] , [place] [address] Care Team Providers Name Role Phone Annie Hastings MD - Student in an Care Team Information Classified Ad Clerk [phone] Organized Health Care Education/Training Program Problems Description No Information Available Social History Type Date Description Comments Sex Unknown Tobacco Use Start: Unknown Never Smoked Cigarettes ETOH Use Occasionally consumes alcohol Tobacco Use Start: Unknown Patient has never smoked Recreational Drug Use Denies Drug Use Smoking Status Reviewed: 08/30/19 Patient has never smoked Exercise Type/Frequency Does not exercise Allergies, Adverse Reactions, Alerts Active Allergies Reaction Severity Comments Date Amoxicillin 04/23/2014 Penicillin 04/23/2014 Sulfa Antibiotics 04/23/2014 Cipro 07/29/2018 Medications Active Medications SIG Qnty Indications Ordering Date Provider Zoloft 1 tablet by mouth 90tabs Yolanda 08/07/2019 50mg Tablets every day Senner, DO Doxycycline Hyclate 1 by mouth twice a 14tabs J06.9 Yolanda 07/31/2019 day Senner, DO 100mg Tablets Flonase Allergy two sprays per 15.800ml J06.9 Yolanda 07/31/2019 Relief nostril once daily Senner, DO 50mcg/Act Suspension Cyanocobalamin 1 milliliters 6ml Zsofia Micha, 05/18/2019 intramuscular q PULLMAN CLERK 1000mcg/ML Solution week for 4 weeks then continue 1 ml every 4 weeks Diflucan take one tab by 3tabs Shanelle Loera, 05/16/2019 150mg Tablets mouth every 72 N.P. hours x 3 Multivitamin Adult 1 by mouth every Unknown day Tablets Di 1 by mouth every 84tabs Angelica Fisherkins, 3-0.02mg Tablets day PULLMAN CLERK-Cde Medications Administered in Office Medication SIG Qnty Indications Ordering Provider Date B-12 Injection Nurse Visit Nikhil 05/22/2019 Injection PPD Injection Geraldo Haynes MD 09/06/2018 Immunizations Description No Information Available Vital Signs Date Vital Result Comment 08/30/2019 10:44am Height 68 inches 5'8" Weight 116.00 lb Heart Rate 62 /min BP Systolic 104 mmHg BP Diastolic 69 mmHg O2 % BldC Oximetry 98 % BMI (Body Mass Index) 17.6 kg/m2 Last Menstrual Period [id number] 07/31/2019 3:48pm Height 68 inches 5'8" Weight 116.00 lb Heart Rate 55 /min BP Systolic Sitting 100 mmHg BP Diastolic Sitting 66 mmHg Body Temperature 97.9 F O2 % BldC Oximetry 98 % BMI (Body Mass Index) 17.6 kg/m2 Results Test Acquired Date Facility Test Result H/L Range Note Comp Metabolic 07/06/2019 [facility] Sodium 136 mmol/L Normal 135-145 Panel [address] [place] [address] [phone] Potassium 4.5 mmol/L Normal 3.5-5.0 Chloride 104 mmol/L Normal 101-111 Co2 Carbon Dioxide 26 mmol/L Normal 22-32 Anion Gap 6 mmol/L Normal 2-11 Glucose 84 mg/dL Normal 70-100 Blood Urea Nitrogen 9 mg/dL Normal 6-24 Creatinine 0.92 mg/dL Normal 0.51-0.95 BUN/Creatinine Ratio 9.8 Normal 8-20 Calcium 9.6 mg/dL Normal 8.6-10.3 Total Protein 7.1 g/dL Normal 6.4-8.9 Albumin 4.3 g/dL Normal 3.2-5.2 Globulin 2.8 g/dL Normal 2-4 Albumin/Globulin Ratio 1.5 Normal 1-3 Total Bilirubin 0.30 mg/dL Normal 0.2-1.0 Alkaline Phosphatase 50 U/L Normal 34-104 Alt 10 U/L Normal 7-52 Ast 14 U/L Normal 13-39 Egfr Non- 75.0 >60 Egfr 90.7 >60 1 CBC Auto 07/06/2019 [facility] White Blood 4.8 10^3/uL Normal 3.5-10.[address] [place] [address] [phone] Red Blood Count 4.15 10^6/uL Normal 3.70-4.87 Hemoglobin 12.5 g/dL Normal 12.0-16.0 Hematocrit 36 % Normal 35-47 Mean Corpuscular Volume 88 fL Normal 80-97 Mean Corpuscular Hemoglobin 30 pg Normal 27-31 Mean Corpuscular HGB Conc 34 g/dL Normal 31-36 Red Cell Distribution Width 13 % Normal 10-15 Platelet Count 297 10^3/uL Normal 150-450 Mean Platelet Volume 7.4 fL Normal 7.4-10.4 Abs Neutrophils 2.7 10^3/uL Normal 1.5-7.7 Abs Lymphocytes 1.7 10^3/uL Normal 1.0-4.8 Abs Monocytes 0.3 10^3/uL Normal 0-0.8 Abs Eosinophils 0.0 10^3/uL Normal 0-0.6 Abs Basophils 0.0 10^3/uL Normal 0-0.2 Abs Nucleated RBC 0.0 10^3/uL Granulocyte % 56.9 % Lymphocyte % 35.1 % Monocyte % 6.2 % Eosinophil % 0.9 % Basophil % 0.9 % Nucleated Red Blood Cells % 0.1 Laboratory 07/06/2019 [facility] Hepatitis B Nonreactive Nonreactive test finding [address] [place] [address] [phone] Hepatitis B Luisa AB Titer Not Immune Abnormal Immune Hepatitis C Antibody 07/06/2019 [facility] HCV Index 0.02 s/c [address] [place] [address] [phone] Hepatitis C Antibody Negative Negative Laboratory test 06/17/2019 [facility] Vitamin B12 733 pg/mL Normal 180-914 2 finding [address] [place] [address] [phone] Laboratory test 05/18/2019 [facility] Glucose 81 mg/dL Normal 70-100 finding [address] [place] [address] [phone] Laboratory test 05/17/2019 [facility] Hemoglobin A1c 5.0 5-7 finding Laboratory test 05/17/2019 [facility] Glucose Serum 91 finding CBC Auto Diff 05/17/2019 [facility] White Blood 5.6 Normal 3.5 -10.[address] Count 10^3/[place] [address] [phone] Red Blood Count 4.22 10^6/uL Normal 3.70-4.87 [...] Blood Cells % 0.1 Comp Metabolic 05/17/2019 [facility] Sodium 137 mmol/L Normal 135-[address] [place] [address] [phone] Potassium 4.3 mmol/L Normal 3.5-5.0 Chloride 105 [...] Egfr Non- 67.3 >60 Egfr 81.5 >60 3 Laboratory test 05/17/2019 [facility] HCG < 0.60 [address] mIU/[place] [address] [phone] Laboratory test 05/16/2019 [facility] Gardnerella/Ye SEE RESULT 5, [address] ast: [place] [address] Dna [phone] Laboratory test 05/12/2019 [facility] TSH (Thyroid 1.44 Normal 0.[address] Stim Horm) mcIU/mL -5.6 [place] [address] 0 [phone] CBC Auto Diff 05/12/2019 [facility] White Blood 7.0 Normal 3.5 - [address] Count 10^3/uL 10.8 [place], [place] [address] [phone] Red Blood Count 4.23 10^6/uL Normal 3.70-4.87 [...] Blood Cells % 0.1 Lipid Profile 05/12/2019 [facility] Triglycerides 122 mg/dL 7 (Trig/Chol/HDL) [address] [place], [place] [phone] Cholesterol 229 mg/dL 8 HDL Cholesterol 71.2 mg/dL 9 LDL Cholesterol 133 mg/dL 10 Laboratory test 05/12/2019 [facility] Erythrocyte Sed 10 mm/Hr Normal 0-[address] [place], [place] [address] [phone] Vitamin B12 178 pg/mL Low 180-914 11 Vitamin D Total 25(Oh) 34.3 ng/mL Normal 20-50 12 1 Because ethnic data is not always [...] 5 Kidney failure <15 (or dialysis) 2 Normal Range 180 to 914 Indeterminate Range 145 to 180 Deficient Range <145 3 Because ethnic data is not always readily [...] 15-29 5 Kidney failure <15 (or dialysis) 4 <5.0 Negative 5.0 - 25.0 Indeterminate (Repeat testing recommended after 72 hours) >25.0 Positive Perimenopausal women can display HCG levels of up to 20 mIU/mL 5 [id number] SEE RESULT BELOW Name: YASEMIN MCHUGH : [address]: Shanelle Loera NP Acct: [id number] Unit: [id number] AGE: 24 Location: [facility] Re05/16/19 SEX: F Status: REG REF SPEC: [id number] EBONIE: 05/16/[address]: Shanelle Loera NP REQ: [id number] RECD: 05/16/19 STATUS: COMP _ SOURCE: VAGINAL SPDESC: ORDERED: Marlo,Yeast DNA, Trich DNA COMMENTS: [id number] Would you like to order Trichomonas Vaginalis [...] failure. Trichomonas: Vaginal DNA Probe Final 05/17/19- 1432 ML Organism 1 Negative Trichomonas CONTINUED ON NEXT PAGE DEPARTMENT OF PATHOLOGY, [address] [place] [address] Jacky Norman M.D. Director [facility] # [id number] Patient: YASEMIN MCHUGH [id number] (Continued) Specimen: [id number] Collected: 05/16/19 Received: 05/16/19 (Continued) Procedure Result Reported Site Trichomonas: Vaginal DNA Probe Final (continued) 05/17/19- 1431 The presence or absence of T. vaginalis cannot be used as a test for therapeutic success or failure. * ML - Main Lab . END OF REPORT DEPARTMENT OF PATHOLOGY, [address] [place] [address] Jacky Norman M.D. Director [facility] # [id number] 7 Desirable: <150 Borderline High: 150-199 High: 200-499 Very High: >500 8 Desirable: <200 Borderline High: 200-239 High: >239 9 Low: <40 Desirable: 40-60 High: >60 10 Desirable: <100 Near Optimal: 100-129 Borderline High: 130-159 High: 160-189 Very High: >189 11 Normal Range 180 to 914 Indeterminate Range 145 to 180 Deficient Range <145 12 Total 25-Hydroxyvitamin D2 and D3 (25-OH-VitD) <10 ng/mL (severe deficiency) 10-19 ng/mL (mild to moderate deficiency) 20-50 ng/mL (optimum levels) 51-80 ng/mL (increased risk of hypercalciuria) >80 ng/mL (toxicity possible) Procedures Date Code Description Status 05/22/2019 91094 Admin Of Inj Completed Medical Devices Description No Information Available Encounters Type Date Location Provider Dx Diagnosis Office Visit 08/30/2019 [facility] Shanelle Loera, N.P. 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 Office Visit 05/11/2019 4:00p [facility] Internal Annie Hastings MD Z00.01 Encounter for Medicine - Suite general adult R medical exam w abnormal findings R53.82 Chronic fatigue, unspecified E78.5 Hyperlipidemia, unspecified Z23 Encounter for immunization R51 Headache F33.0 Major depressive disorder, recurrent, mild Assessments Date Code Description Provider 08/30/2019 N92.5 Other specified irregular menstruation Shanelle Loera N.P. 08/30/2019 Z79.3 [facility] (current) use of hormonal Shanelle Loera N.P. contraceptives 07/31/2019 J06.9 Acute upper respiratory infection, unspecified Yolanda DO [place] 05/22/2019 E53.8 Deficiency of other specified B group vitamins Nurse Visit [place] 05/17/2019 R55 Syncope and collapse RACHEL Vines 05/17/2019 E16.1 Other hypoglycemia RACHEL Vines 05/16/2019 N76.0 Acute vaginitis Shanelle Loera N.P. 05/11/2019 Z00.01 Encounter for general adult medical examination Annie Hastings MD with abnormal findings 05/11/2019 R53.82 Chronic fatigue, unspecified Annie Hastings MD 05/11/2019 E78.5 Hyperlipidemia, unspecified Annie Hastings MD 05/11/2019 Z23 Encounter for immunization Annie Hastings MD 05/11/2019 R51 Headache Annie Hastings MD 05/11/2019 F33.0 Major depressive disorder, recurrent, mild Annie Hastings MD Plan of Treatment No Information Available Functional Status Description No Information Available Mental Status Description No Information Available Referrals Refer to Dr Reason for Referral Status Appt Arnold Novoa MD Sent [address] [address] [phone] [facility] Closed [address] [facility] [address] [facility] [address] [phone]
--- NOTE | 2019-09-29 19:40 | UC ---
Throat Pain/Nasal Axel HPI - HPI Summary HPI Summary: 24-year-old female presents with 2 week history of a mild sore throat. States she has noted some occasional red spots to her soft pallet and today noted a white spot on her uvula. Reports occasional dry nonproductive cough. 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 Denies fever, chills, nasal congestion, postnasal drip, ear pain, dysphagia, chest pain, shortness of breath, abdominal pain, nausea, or vomiting. - History of Current Complaint Chief Complaint: UCGeneralIllness Stated Complaint: SORE THROAT Time Seen by Provider: 09/29/19 19:25 Hx Obtained From: Patient Hx Last Menstrual Period: 09/04/19 Pain Intensity: 1 - Allergies/Home Medications Allergies/Adverse Reactions: Allergies Allergy/AdvReac Type Severity Reaction Status Date / Time amoxicillin Allergy Unknown Verified 09/29/19 19:29 Reaction Details ciprofloxacin [From Cipro] Allergy Unknown Verified 09/29/19 19:29 Reaction Details Penicillins Allergy Hives Verified 09/29/19 19:29 Sulfa (Sulfonamide Allergy Hives Verified 09/29/19 19:29 Antibiotics) Home Medications: Home Medications Ethinyl Estradiol/Drospirenone [Di 28 Tablet] 1 each PO DAILY 05/17/19 [ History Confirmed 09/29/19] Sertraline* [Zoloft*] 25 mg PO DAILY 05/17/19 [History Confirmed 09/29/19] PMH/Surg Hx/FS Hx/Imm Hx Previously Healthy: Yes Psychological History: Anxiety, Depression - Surgical History Surgical History: Yes Surgery Procedure, Year, and Place: tonsillectomy - Family History Known Family History: Positive: Cardiac Disease, Other - Anxiety (mother), depression (mother) - Social History Occupation: Employed Full-time Lives: With Family Alcohol Use: Rare Alcohol Amount: 2x/month, 4 drinks at a time. Substance Use Type: None Smoking Status (MU): Never Smoked Tobacco - Immunization History Most Recent Influenza Vaccination: 2012 Most Recent Tetanus Shot: UNKNOWN Most Recent Pneumonia Vaccination: NEVER Review of Systems All Other Systems Reviewed And Are Negative: Yes Constitutional: Negative: Fever, Chills Skin: Negative: Rash Eyes: Negative: Drainage, Eye Redness ENT: Positive: Sore Throat. Negative: Ear Ache, Nasal Discharge, Sinus Congestion, Sinus Pain/Tenderness Respiratory: Positive: Cough. Negative: Shortness Of Breath Cardiovascular: Negative: Chest Pain Gastrointestinal: Negative: Abdominal Pain, Vomiting, Nausea Genitourinary: Positive: Negative Musculoskeletal: Positive: Negative Neurological/Mental Status: Positive: Negative Is Patient Immunocompromised?: No Physical Exam - Summary Physical Exam Summary: GENERAL APPEARANCE: Well developed, well nourished, alert and cooperative, and appears to be in no acute distress. EYES: Conjunctiva clear. No drainage. EARS: External auditory canals and tympanic membranes clear, hearing grossly intact. NOSE: No nasal discharge. THROAT: Mild pharyngeal erythema. Tonsils surgically absent. Uvula midline with a single, white, ulceration with erythematous border. NECK: Neck supple, non-tender without lymphadenopathy. CARDIAC: Normal S1 and S2. No S3, S4 or murmurs. Rhythm is regular. There is no peripheral edema, cyanosis or pallor. Extremities are warm and well perfused. Capillary refill is less than 2 seconds. Peripheral pulses intact. LUNGS: Clear to auscultation without rales, rhonchi, wheezing or diminished breath sounds. ABDOMEN: Positive bowel sounds. Soft, nondistended, nontender. No guarding or rebound. No masses or hepatosplenomegally. MUSKULOSKELETAL: ROM intact to all extremities. No joint erythema or tenderness. Normal muscular development. Normal gait. SKIN: Skin normal color, texture and turgor with no lesions or eruptions. Triage Information Reviewed: Yes Vital Signs Reviewed: Yes Throat Pain/Nasal Course/Dx - Course Course Of Treatment: 24-year-old female presents with 2 week history of a mild sore throat. States she has noted some occasional red spots to her soft pallet and today noted a white spot on her uvula. Reports occasional dry nonproductive cough. 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 Denies fever, chills, nasal congestion, postnasal drip, ear pain, dysphagia, chest pain, shortness of breath, abdominal pain, nausea, or vomiting. Afebrile. Vital signs stable. Patient had no nasal congestion, normal TMs, mild pharyngeal erythema, surgically absent tonsils, midline uvula with a single, white, ulceration with erythematous border, no cervical lymphadenopathy, clear bilateral breath sounds, and otherwise unremarkable exam. Rapid strep test was negative. Reviewed results with the patient. We discussed that her symptoms are likely a viral pharyngitis and I'm recommending symptomatic treatment at this time. She is to follow-up with her primary care provider or ENT in 7 days if symptoms do not improve. Anticipatory guidance and warning symptoms are reviewed with the patient. Verbalizes understanding and agrees with plan of care. - Differential Dx/Diagnosis Differential Diagnosis/HQI/PQRI: Mononucleosis, Peritonsillar Abscess, Pharyngitis, Tonsillitis, URI Provider Diagnosis: Viral pharyngitis Discharge ED - Sign-Out/Discharge Documenting (check all that apply): Patient Departure All imaging exams completed and their final reports reviewed: No Studies - Discharge Plan Condition: Stable Disposition: HOME Patient Education Materials: Pharyngitis (ED) Referrals: Annie Hastings MD [Primary Care Provider] - Michael Jauregui MD [Medical Doctor] - 7 Days (Call for appointment.) Additional Instructions: Your rapid strep test in the clinic today was negative. Your symptoms are likely from a viral infection. Viral infections do not respond to antibiotics and are limited to the treatment of symptoms. Viral infections typically run their course in 7-10 days. Drink plenty of fluids to avoid dehydration especially if you are running any fever. Use salt water gargles several times a day. Take over the counter acetaminophen (Tylenol) or ibuprofen (Advil, Motrin) according to directions as needed for pain or fever. You may also use Chloraseptic spray or Cepacol lonzenges according to directions which contain a numbing medication and can provide some temporary relief from your sore throat. Follow up with your primary care provider or the Ear, Nose, and Throat (ENT) specialist in 7 days if symptoms persist. Seek immediate medical attention in the emergency room if you have fever greater than 100.5 F despite taking acetaminophen or ibuprofen, are unable to swallow or develop drooling, are unable to open your mouth fully, are unable to eat or drink, have pain that is not relieved with over the counter pain medication, or have any difficulty breathing. - Billing Disposition and Condition Condition: STABLE Disposition: Home
[2019-09-29 19:43] VITALS: BP 119/75
== END 2019-09-29 20:16 | disposition home or self-care (01) ==
LOC: UCEAST 19:22
DX: J02.8 Acute pharyngitis due to other specified organisms (principal); F41.9 Anxiety disorder, unspecified; F32.9 Major depressive disorder, single episode, unspecified; Z79.899 Other long term (current) drug therapy; Z88.1 Allergy status to other antibiotic agents; Z88.0 Allergy status to penicillin; Z88.2 Allergy status to sulfonamides
CPT/HCPCS: 87651; 99211; G0463